=== PATIENT | male | born 1995 | race Caucasian/White ===

== ENCOUNTER 2018-01-16 19:19 | Observation (INO) ==
[2018-01-16] MEDS ORDERED: LACTATED RINGERS 1,000 ML IV STA (19:44)
[2018-01-16] MEDS ORDERED: DIPHTHERIA/TETANUS ADULT VACCINE 0.5 ML VIAL IM ONE (19:44)
[2018-01-16 20:03] LABS: Basophils # 0.1 10*3/uL (0.0-0.2); Basophils % 0.5 % (0.0-0.8); Eosinophils # 0.1 10*3/uL (0.0-0.87); Hematocrit 46.2 VOL% (42.0-52.0); Hemoglobin 16.3 GM/DL (14.0-18.0); Immature Granulocytes % 0.5 %; Immature Granulocytes Absolute 0.05 #; Lymphocytes # 2.6 10*3/uL (1.4-4.0); Lymphocytes % 26.4 % (21.2-54.2); Mean Corpuscular HGB Conc 35.3 GM/DL (32-36); Mean Corpuscular Hemoglobin 31 PG (27-34); Mean Corpuscular Volume 87.5 FL (87-102); Mean Platelet Volume 10.4 FL (9.6-12.0); Monocytes # 0.8 10*3/uL (0.11-0.8); Neutrophils # 6.3 10*3/uL (1.4-7.4); Neutrophils % 63.6 % (38.7-73.9); Platelet Count 136 T/CUMM (130-400); Red Blood Count 5.28 MC/CUMM (3.8-5.5); Red Cell Distribution Width 12.1 % (9.3-17.3); White Blood Count 9.9 T/CUMM (4-12)
[2018-01-16 20:17] LABS: INR 1.1; PT Patient Result 11.2 SECS; Partial Thromboplastin Time 25.8 SECS (0-40)
[2018-01-16 20:38] LABS: Alanine Aminotransferase 28 U/L (16-61); Albumin 4.3 G/DL (3.4-5.0); Alkaline Phosphatase 83 U/L (45-117); Amylase 36 U/L (25-115); Aspartate Amino Transferase 19 U/L (0-37); Blood Urea Nitrogen 16 MG/DL (7-18); Calcium 9.3 MG/DL (8.5-10.1); Glucose 87 MG/DL (74-106); Osmolality,Calculated 278.4 MOS/KG (273-304); Potassium 3.6 MMOL/L (3.5-5.1); Sodium 140 MMOL/L (136-145); Total Protein 7.1 G/DL (6.4-8.3)
[2018-01-16 20:39] LABS: Lactic Acid 1.5 MMOL/L (0.4-2.0)
[2018-01-16 20:40] LABS: Barbiturates Screen,Urine Negative (Negative); Benzodiazepines Screen,Urine Negative (Negative); Cannabinoid Screen,Urine Positive (Negative); Opiate Screen,Urine Negative (Negative); Phencyclidine Screen,Urine Negative (Negative)
[2018-01-16 20:42] LABS: Apearance,Urine CLEAR (Clear); Bilirubin,Urine Negative (Negative); Blood, Urine Moderate mg/dL (Negative); Glucose,Urine (UA) Negative (Negative); Ketones,Urine Negative (Negative); Nitrite,Urine Negative (Negative); Protein,Urine 100 MG/DL; RBC,Urine 74 /HPF (0-4); Squamous Epithelial Cell,Urine Occasional /HPF (0-10); Urine Color Yellow (Yellow); Urine Specific Gravity 1.018 (1.001-1.035); Urine Urobilinogen < 2.0 EU/DL (0.2-1.0); WBC,Urine 7 /HPF (0-6)
[2018-01-16] MEDS ORDERED: LORazepam 2 MG/1 ML VIAL ONE ×3 (21:02→21:22)
[2018-01-16] MEDS ORDERED: HALOPERIDOL 5 MG/ML AMP ONE ×2 (21:05→21:20)
[2018-01-16] MEDS ORDERED: LORazepam 2 MG/1 ML VIAL IV STA ×3 (21:58→22:23)
[2018-01-16] MEDS ORDERED: HALOPERIDOL 5 MG/ML AMP IM STA (22:03)
[2018-01-16] MEDS ORDERED: HYDROmorphone 2 MG/1 ML VIAL IV PRN (23:49)
[2018-01-16] MEDS ORDERED: ACETAMINOPHEN 325 MG TABLET PO PRN (23:49)
[2018-01-16] MEDS ORDERED: ONDANSETRON 4 MG/2 ML VIAL IV PRN (23:49)
[2018-01-17] MEDS: DEXTROSE 5% NACL 0.45% 1,000 ML IV SCH ×2 (00:51→08:41)
[2018-01-17] MEDS ORDERED: PANTOPRAZOLE 40 MG TABLET PO SCH (09:00)
[2018-01-17 16:30] VITALS: BP 131/69
== END 2018-01-17 10:19 ==
LOC: EDBD → EDUNIT# → N.EDINP 19:19 → N.ED 19:19 → N.3E 22:25 → N.2E 01-18 07:22 → N.3E 01-18 11:16
PROVIDERS: ADMIT Surgery; ATTEND Surgery